=== PATIENT | female | born 1955 | race Caucasian/White ===

== ENCOUNTER 2020-08-06 05:13 | Emergency (ER) | payer SELFPAY ==
[~2020-08-06] VITALS: Ht 172.7 cm; Wt 113.4 kg
--- NOTE | 2020-08-06 05:20 | Emergency Department Note ---
History of Present Illnes History of Present Illness Chief Complaint: Eye, Ear, Nose, Throat, Dental History of Present Illness This is a 65 year old female, with history of hypertension and NIDDM, who presents for evaluation of scratches around her right eye, that were inflicted by her cat. Patient states that she awoke, just prior to arrival, and her cat was rubbing it's paw on her right eye. The patient reached for the cat's paw to move it away from her eye, when the cat scratched her around her right eye, in an effort to free it's paw. Patient is complaining of pain on the right outer eyelid and around the eyelash line of the upper eyelid. Patient denies any pain or visual changes. Historian: Patient Arrival Mode: Car Food Management Aide Required: No Onset (how long ago): minute(s) (30) Location: right outer eye Quality: aches, neal Radiation: Reports non-radiation Severity: moderate Onset quality: sudden Duration (how long): hour(s) (0.5) Timing of current episode: constant Progression: unchanged Chronicity: new Context: Reports trauma/injury (see HPI) Relieving factors: none Exacerbating factors: other (pain to touch the right outer eye, at the sites of the abrasions) Associated symptoms: Reports denies other symptoms Treatments prior to arrival: none Risk factors: diabetes Past Medical/Family History Physician Review I have reviewed the patient's past medical and family history. Any updates have been documented here. Past Medical History Recent Fever: No Clinical Suspicion of Infectio: No New/Unexplained Change in Ment: No Past Medical History: Hypertension, Diabetes (NIDDM) Other Surgery: ankle surgery Social History Smoking Cessation: Never Smoker Alcohol Use: Occasional Any Illegal Drug Use: No TB Exposure/Symptoms: No Physically hurt or threatened: No Family History Family history of heart diseas: No Other Last Tetanus: unknown Any Pre-Existing Lines (PICC,: No Is patient up to date on immun: No Review of Systems Review of Systems Constitutional: Reports no symptoms EENTM: Denies eye pain, Denies blurred vision, Denies tearing, Denies double vision Cardiovascular: Reports no symptoms Respiratory: Reports no symptoms Gastrointestinal: Reports no symptoms Musculoskeletal: Reports no symptoms Integumentary: Reports other (abrasions around the right outer eyelid) Neurological: Reports no symptoms Review of other systems: All other systems negative Physical Exam Related Data Allergies: Coded Allergies: Penicillins (Verified Allergy, Unknown, 08/06/20) Vital signs reviewed: Yes Physical Exam CONSTITUTIONAL Constitutional: Present well-developed, Present well-nourished; Absent distressed HENT HENT: Present normocephalic, Present atraumatic, Present oropharynx clear/moist, Present nose normal HENT L/R: Present left ext ear normal, Present right ext ear normal EYES Eyes: Reports PERRL, Reports EOM normal, Reports other (small subconjunctival hemorrhage at 12:00; 1.5 cm superficial scratch in the crease of the right upper eyelid, with no active bleeding; right upper eyelid appears to have some light ecchymoses; small superficial laceration along the lash line of the righ maria victoria eyelid; right upper eyelid is intact; with no visible damage to the caruncle or medial canthus; Wood's lamp negative for corneal abrasion;); Denies left eye discharge, Denies right eye discharge, Denies scleral icterus NECK Neck: Present ROM normal, Present supple; Absent cervical adenopathy PULMONARY Pulmonary: Present effort normal CARDIOVASCULAR Cardiovascular: Present regular rhythm, Present capillary refill normal, Present normal rate GASTROINTESTINAL GENITOURINARY SKIN MUSCULOSKELETAL NEUROLOGICAL PSYCHOLOGICAL Psychological: Present mood/affect normal, Present judgement normal Procedures Foreign Body - Eye Time out performed: Yes Location: right eye Topical anesthetic: tetracaine Foreign body: other (No evidence of a corneal abrasion. No foreign body suspected;) Evidence of corneal penetratio: No Procedure performed under: direct, magnified visualization Post-procedure medication: other (Rx prescribed;) Patient tolerated procedure: well Complications: other (No evidence of corneal abrasion;) Assessment & Plan Medical Decision Making MDM - Keep the cuts and abrasions on the right eyelid clean and dry. Recommend he clean them twice daily with small amount of baby shampoo, and then irrigate with saline. Allow the area to dry, and then apply antibiotic ointment, 2-3 times per day. - Follow-up with an library clerk talking books today, JEN, to further evaluate the injury to the right eye. - Obtain a Tetanus Shot TODAY, at one of the local pharmacies. - You may apply ice the area, frequently, to help with pain and swelling. - Complete all oral antibiotics. - Follow-up immediately, if he developed any signs of infection around the eye, including redness, warmth, increased swelling, increased pain, or drainage from the wounds. ([employer] aware website very, and patient had no recent prescriptions for any controlled substances was ( Assessment & Plan Final Impression: (1) Abrasion of eyelid, right (2) Scratch of face (3) Hypertension (4) Diabetes Depart Disposition: HOME, SELF-prison Meds Active Scripts Clindamycin Hcl (CLINDAMYCIN HCL) 150 Mg Capsule, 300 MG PO TID for infection for 10 Days, #30 CAP 0 Refills 2 TABS PO TID Prov:IVAN GARCIA MD 08/06/20 Tramadol Hcl (ULTRAM) 50 Mg Tablet, 1-2 TAB PO Q6H PRN for pain, #20 TAB 0 Refills Prov:IVAN GARCIA MD 08/06/20 Medications in the ED - Also prescribed at D/C, but unable to print: EES Ophthalmic Ointment, apply small amount inside right lower eyelid tid x 10 days. Disp: 1 tube. IVAN GARCIA MD Aug 06, 2020 05:20
[2020-08-06] MEDS ORDERED: ULTRAM50 MG PO (05:23)
[2020-08-06] MEDS ORDERED: CLINDAMYCIN HC150 MG PO (05:25)
== END 2020-08-06 05:50 | disposition home or self-care (01) ==
LOC: FSED 05:30
DX: S00.211A Abrasion of right eyelid and periocular area, initial encounter (principal); W55.03XA Scratched by cat, initial encounter; Y92.008 Other place in unspecified non-institutional (private) residence as the place of occurrence of the external cause; I10 Essential (primary) hypertension; E11.9 Type 2 diabetes mellitus without complications
CPT/HCPCS: 99282